=== PATIENT | female | born 1990 | race Native Hawaiian/Other Pacific Islander ===

== ENCOUNTER 2018-10-27 15:14 | Emergency (ER) | payer OTHER ==
[~2018-10-27] VITALS: Ht 170.2 cm; Wt 94.6 kg
[2018-10-27] MEDS ORDERED: ONE DAILY FOR WOME1 PO (15:55)
[2018-10-27] MEDS ORDERED: ZOFRAN8 MG PO (15:55)
[2018-10-27 17:16] LABS: PLATELET COUNT 232 K/uL (152-353)
[2018-10-27 17:29] LABS: POTASSIUM 3.8 mmol/L (3.6-5.2)
[2018-10-27 18:21] VITALS: BP 128/64
== END 2018-10-27 18:22 | disposition home or self-care (01) ==
LOC: ED 15:14
PROVIDERS: Emergency Medicine
DX: R42 Dizziness and giddiness (principal); Z33.1 Pregnant state, incidental; Z3A.26 26 weeks gestation of pregnancy
CPT/HCPCS: 36415; 80053; 81000; 85027; 99284

== ENCOUNTER 2022-03-17 16:43 | Emergency (ER) | payer OTHER ==
[~2022-03-17] VITALS: Ht 170.2 cm; Wt 94.3 kg
[~2022-03-17 16:43] MED LIST: ONE DAILY FOR WOME1 PO; ZOFRAN8 MG PO
[2022-03-17 16:47] VITALS: BP 137/82; TEMP 98.4
== END 2022-03-17 17:55 | disposition home or self-care (01) ==
LOC: ED 16:43
PROC: 2W3DX1Z Immobilization of Left Lower Arm using Splint (ICD-10-PCS; principal; 2022-03-17)
DX: S66.412A Strain of intrinsic muscle, fascia and tendon of left thumb at wrist and hand level, initial encounter (principal); S66.812A Strain of other specified muscles, fascia and tendons at wrist and hand level, left hand, initial encounter; X58.XXXA Exposure to other specified factors, initial encounter; Y92.89 Other specified places as the place of occurrence of the external cause
CPT/HCPCS: 99283

== ENCOUNTER 2023-02-09 13:41 | Emergency (ER) | payer OTHER ==
[~2023-02-09] VITALS: Ht 170.2 cm; Wt 99.8 kg
[2023-02-09 13:46] VITALS: BP 146/86; TEMP 98.7
== END 2023-02-09 14:37 | disposition home or self-care (01) ==
LOC: ED 13:41
DX: M79.641 Pain in right hand (principal); W54.0XXA Bitten by dog, initial encounter
CPT/HCPCS: 99282